=== PATIENT | female | born 1940 | race Caucasian/White ===

== ENCOUNTER 2021-09-20 13:01 | Outpatient (CLI) | payer MEDICARE, OTHER | END 2021-09-20 13:02 | disposition home or self-care (01) | LOC: NAV RAD 13:01 | PROVIDERS: ATTEND Internal Medicine Cardiovascular Disease | DX: I48.0 Paroxysmal atrial fibrillation (principal); J81.1 Chronic pulmonary edema | CPT/HCPCS: 71046 ==